=== PATIENT | male | born 1990 | race Caucasian/White ===

== ENCOUNTER 2017-03-03 12:42 | Emergency (ER) | payer SELFPAY ==
[~2017-03-03] VITALS: Ht 180.3 cm; Wt 87.0 kg
[2017-03-03 12:43] VITALS: BP 134/77; PULSE 70; RESP 16; TEMP 98.7; O2SAT 100
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
== END 2017-03-03 13:46 | disposition home or self-care (01) ==
LOC: NEPD 12:42
DX: R60.0 Localized edema (principal); F17.210 Nicotine dependence, cigarettes, uncomplicated
CPT/HCPCS: 99281